=== PATIENT | female | born 1960 | race Caucasian/White ===

== ENCOUNTER 2018-01-05 14:33 | Emergency (ER) | payer OTHER, SELFPAY ==
[2018-01-05 14:35] VITALS: BP 167/90; PULSE 82; RESP 16; TEMP 36.8; O2SAT 99; BMI 22.9
--- NOTE | 2018-01-05 14:51 | NURSING ---
NO OLD EKGS
--- NOTE | 2018-01-05 15:36 | ED.RN ---
dr uriostegui in room. pt agrees to chest x-ray. does not want blood work or ct completed .
--- NOTE | 2018-01-05 16:21 | ED.VISSUMM ---
- ER Visit Summary Date of Service: 01/05/18 Chief Complaint: Chest pain History of Present Illness: The patient is a 57 F who has no primary care physician. She reports that she has had a nagging pain in the right axilla and lateral chest that has been present for 2 weeks. States that this began the day after she was packing boxes and having to squeeze them together. States that the pain did seem to resolve, but does return again 2 days ago after working around the house. States pain 6 out of 10 worst through 10 currently. Is worsened by movement of her right arm or laying down. Is relieved by aspirin, Tylenol, or laying still. Patient denies any ankle swelling. She has a history of DVT 20 years ago while . No travel. No calf pain. No fever, chills, cough, shortness of breath, or other complaints. Physical Examination: Vitals: Stable. Afebrile. General: Well-nourished and well-developed. Head: Normocephalic atraumatic. Neck: Supple, no lymphadenopathy. No JVD. Nontender. Cardiovascular: Regular rate and rhythm. No murmurs. Respiratory: No respiratory distress. Clear to auscultation bilaterally. Mild tenderness palpation over the right axilla and inferior to this that does reproduce her pain. Abdominal: Soft, nontender, nondistended, normal bowel sounds. No guarding, rebound, or peritoneal signs. Back: Nontender. Extremities: Nontender, no edema. Skin: Normal color, no rash. Neurologic: Alert and oriented ?3. Cranial nerves II through XII are intact. Normal strength and sensation. Psych: Normal affect. Test Results: EKG is sinus arrhythmia at 79 with no acute changes. Chest x-ray is rotated with scoliosis and atelectasis on the right. No infiltrate or pneumothorax. Emergency Department Course and Treatment: Patient refused an IV, labs, lower extremity Doppler, or pain medications. Treatment Plan: Patient will be discharged instructions follow-up Dr. Zamorano in 3-5 days not improving. Use Tylenol and/or ibuprofen for pain. Return to the emergency department for any worsening symptoms. Disposition: To home in improved and stable condition. Impression: 1. Musculoskeletal chest pain. This note was generated with Q.branchation software. It may contain incorrect words, spelling, and punctuation that were not noted in review of the chart prior to signing ED Disposition - Plan for ED Patient: Disposition: Home or Assisted Living Chief Complaint: Chest Pain Instructions: ED Strain Chest Wall Referrals: Preston Hoyos MD [STAFF PHYSICIAN] - 3-5 Days if not improving
== END 2018-01-05 16:30 | disposition home or self-care (01) ==
PROVIDERS: Emergency Provider Emergency Medicine
DX: R07.89 Other chest pain (principal); M41.9 Scoliosis, unspecified; J98.11 Atelectasis; Z86.718 Personal history of other venous thrombosis and embolism; Z90.49 Acquired absence of other specified parts of digestive tract
CPT/HCPCS: 71045; 93005; 99282

== ENCOUNTER → 2020-05-30 12:44 | Outpatient (CLI) | payer OTHER, SELFPAY ==
--- NOTE | 2020-05-30 12:53 | MRI_ITS ---
STUDY: MRI ORBITS WITH AND WITHOUT CONTRAST REASON FOR EXAM: Female, 60 years old. diplopia TECHNIQUE: Standardized fat and water weighted pulse sequences were obtained in all 3 orthogonal planes, pre-and post contrast administration. 12CC IV DOTAREM was administered for the contrast portion of the examination. COMPARISON: None. FINDINGS: Normal bilateral globes. Normal bilateral optic nerve sheath complexes and optic nerves. Normal bilateral intraconal and extraconal spaces. Normal bilateral extraocular muscles. Normal optic chiasm and post-chiasmatic tracts. Normal sella turcica, pituitary gland, infundibular stalk, and hypothalamus. Normal bilateral cavernous sinuses. Normal tectal plate and pineal gland. Normal flow voids within the major intracranial circulation suggesting patency by spin echo criteria. Normal size of the ventricles and extra-axial spaces for the patient''s age. Normal white matter tracts of the supratentorial brain. Normal bilateral basal ganglia. Normal thalami. There is no extra-axial fluid accumulation. Normal midbrain, cydney and medulla. Normal cerebellum. Normal basal cisterns. MRI/Brain W/WO Contrast IMPRESSION: Normal enhanced and unenhanced MRI of the orbits. Electronically Signed: Kirt Browne MD at 16:05 EST Tel , Service support ,
[2020-05-30 13:17] LABS: Creatinine, Serum 0.86 mg/dL (0.55-1.02); EST Glomerular Filtration Rate 71 mL/min (>60); Est Glom Filt Rate - Afr Amer 86 mL/min (>60)
== END ==
PROVIDERS: Referring Provider Ophthalmology; Visit Provider Ophthalmology
DX: H53.2 Diplopia (principal)
CPT/HCPCS: 36415; 70553; 82565